=== PATIENT | female | born 2000 | race Caucasian/White ===

== ENCOUNTER → 2023-05-03 | Outpatient (CLI) | payer OTHER | END | disposition home or self-care (01) | LOC: RESCLI 15:13 | PROVIDERS: ATTEND Student in an Organized Health Care Education/Training Program | DX: E28.2 Polycystic ovarian syndrome (principal); R55 Syncope and collapse; E03.9 Hypothyroidism, unspecified; F41.9 Anxiety disorder, unspecified; L73.2 Hidradenitis suppurativa; M54.81 Occipital neuralgia; K21.9 Gastro-esophageal reflux disease without esophagitis; G43.909 Migraine, unspecified, not intractable, without status migrainosus; Z88.8 Allergy status to other drugs, medicaments and biological substances; Z79.84 Long term (current) use of oral hypoglycemic drugs; Z79.899 Other long term (current) drug therapy ==